=== PATIENT | male | born 1965 | race Caucasian/White ===

== ENCOUNTER 2016-08-25 13:57 | Outpatient (CLI) | payer SELFPAY ==
[~2016-08-25] VITALS: Ht 195.6 cm; Wt 115.7 kg
[2016-08-25 14:04] VITALS: BP_SYST 166; BP_SYST 189; BP_DIAS 107; BP_DIAS 115
[2016-08-25 14:40] LABS: BASOPHILS % (AUTO) 0.3 % (0.0-2.0); EOSINOPHILS # (AUTO) 0.1 /CMM (0.0-0.7); EOSINOPHILS % (AUTO) 0.9 % (0.0-6.0); HEMATOCRIT 47 % (39-51); HEMOGLOBIN 15.5 g/dL (13.5-17.5); LYMPHOCYTES # (AUTO) 1.3 /CMM (0.8-4.8); LYMPHOCYTES % (AUTO) 18.3 % (20.0-44.0); MEAN CORPUSCULAR HEMOGLOBIN 30 PG (26.0-33.0); MEAN CORPUSCULAR HGB CONC 33 g/dl (31.0-36.0); MEAN CORPUSCULAR VOLUME 91 fL (80-96); MONOCYTES # (AUTO) 0.9 /CMM (0.1-1.30); MONOCYTES % (AUTO) 12.5 % (2.0-12.0); NEUTROPHILS # (AUTO) 4.7 /CMM (1.8-8.9); PLATELET COUNT (AUTO) 321 /CMM (150-450); RDW COEFFICIENT OF VARIATION 12.7 (11.5-15.0); RED BLOOD CELL COUNT(AUTO) 5.22 MIL/uL (4.5-6.0); WHITE BLOOD COUNT (AUTO) 6.9 K/uL (4.3-11.0)
[2016-08-25 16:46] LABS: ALBUMIN 4.2 g/dL (3.4-5.0); BILIRUBIN,DIRECT 0.1 mg/dL (0.0-0.2); BILIRUBIN,TOTAL 0.4 mg/dL (0.2-1.0); CREATININE 1.1 mg/dL (0.6-1.3); MAGNESIUM 2.1 mg/dL (1.8-2.4); POTASSIUM 3.9 mmol/L (3.5-5.1); TOTAL PROTEIN, SERUM 7.9 g/dL (6.4-8.2)
[2016-08-25 17:09] LABS: THYROID STIMULATING HORMONE 1.037 uIU/mL (0.358-3.74)
== END 2016-08-25 23:59 | disposition home or self-care (01) ==
LOC: CSC 13:57
PROVIDERS: ATTEND Internal Medicine
DX: N52.9 Male erectile dysfunction, unspecified (principal); Z79.899 Other long term (current) drug therapy; I10 Essential (primary) hypertension; F32.5 Major depressive disorder, single episode, in full remission; H52.4 Presbyopia
CPT/HCPCS: 36415; 80048-TC; 80061-TC; 80076-TC; 83735-TC; 84443-TC; 85025-TC; G0463